=== PATIENT | female | born 1950 | race African-American/Black ===

== ENCOUNTER 2018-12-24 12:45 | Inpatient (IN) | payer MEDICARE, MEDICAID ==
[~2018-12-24] VITALS: Ht 165.1 cm; Wt 108.9 kg
[~2018-12-24 12:45] MED LIST: ENAL20TA PO; HYDR-3513 PO; OMEPRAZOLE PO; VERAPAMIL PO
[2018-12-24] MEDS ORDERED: ACETAMINOPHEN 325MG TABLET PO STA (13:36)
[2018-12-24] MEDS ORDERED: SODIUM CHLORIDE 0.9% 1000ML BAG (SEPSIS BOLUS) IV ONE (13:45)
[2018-12-24] MEDS ORDERED: LEVOFLOXACIN 500MG PREMIX 100 ML IV ONE (13:45)
[2018-12-24 13:59] LABS: HEMATOCRIT. 37.4 % (36.0-48.0); HEMOGLOBIN. 11.7 g/dL (12.0-16.0); MEAN PLATELET VOLUME 10.9 fl (7.4-10.4); PLATELET 169 x1000/uL (130-400); RED BLOOD CELL COUNT 5.35 mill/uL (4.2-5.4); RED CELL DISTRIBUTION WIDTH 15.5 % (11.6-14.6)
[2018-12-24 14:06] LABS: CHLORIDE 106 mEq/L (98-107)
[2018-12-24 14:07] LABS: INR 1.1; PROTHROMBIN TIME 10.9 sec (9.6-11.0)
[2018-12-24 14:12] LABS: PLATELET ESTIMATE NORMAL
[2018-12-24] MEDS ORDERED: KETOROLAC 15MG/ML VIAL IV NR (15:00)
[2018-12-24] MEDS ORDERED: ONDANSETRON HCL 4MG/2ML INJ IV PRN (16:45)
[2018-12-24] MEDS ORDERED: DOCUSATE SODIUM 100MG CAPSULE PO PRN (16:45)
[2018-12-24] MEDS ORDERED: NA PHOS,M-B/NA PHOS,DI-BA ENEMA 118ML PR PRN (16:45)
[2018-12-24] MEDS ORDERED: CLONIDINE 0.1MG TABLET PO PRN (16:45)
[2018-12-24] MEDS ORDERED: ENOXAPARIN 40MG/0.4ML SYR SUBCUT SCH (16:45)
[2018-12-24] MEDS ORDERED: DIPHENHYDRAMINE 50MG/ML VIAL IV PRN (16:45)
[2018-12-24] MEDS ORDERED: IPRATROPIUM BROMIDE (0.02%) 0.5MG/2.5ML NEB HHN PRN (16:45)
[2018-12-24] MEDS ORDERED: GUAIFENESIN 200MG/10ML SUGAR FREE UDC PO PRN (16:45)
[2018-12-24] MEDS ORDERED: MAGNESIUM/ALUMINUM HYDROXIDE/SIMETHICONE 30ML UDC PO PRN (16:45)
[2018-12-24] MEDS ORDERED: HYDROCODONE/ACETAMINOPHEN 10/325MG TABLET PO PRN (16:45)
[2018-12-24 16:53] VITALS: BP 125/83
[2018-12-24] MEDS ORDERED: POTASSIUM CHLORIDE 20MEQ TABLET SR PO NR (17:45)
[2018-12-24] MEDS: ENOXAPARIN 30MG/0.3ML SYR SUBCUT SCH (21:24)
[2018-12-24] MEDS: SODIUM CHLORIDE 0.9% INJ 3ML FLUSH IVF SCH (21:24)
[2018-12-24] MEDS: ACETAMINOPHEN 325MG TABLET PO PRN (21:29)
[2018-12-25] MEDS: LORAZEPAM 2MG/ML CPJ IV PRN (00:13)
[2018-12-25 01:03] VITALS: BP 123/83
[2018-12-25 01:37] LABS: CREATINE KINASE MB FRACTION < 1.0 ng/mL (0.5-3.6)
[2018-12-25 01:38] LABS: CREATINE KINASE 79 IU/L (26-192)
[2018-12-25] MEDS: SODIUM CHLORIDE 0.9% INJ 3ML FLUSH IVF SCH ×3 (05:09→21:00)
[2018-12-25 07:20] LABS: CHLORIDE 110 mEq/L (98-107)
[2018-12-25 07:31] LABS: CREATINE KINASE 71 IU/L (26-192)
[2018-12-25 07:32] LABS: T4 FREE 1.75 ng/dL (0.76-1.46)
[2018-12-25 07:35] LABS: BASOPHILS % 0.3 % (0.0-2.0); EOSINOPHILS % 0.1 % (0.0-5.0); HEMATOCRIT. 33.6 % (36.0-48.0); HEMOGLOBIN. 10.5 g/dL (12.0-16.0); LYMPHOCYTES % 8.8 % (20.0-50.0); MEAN CORPUSCULAR HEMOGLOBIN 21.9 pg (28.0-32.0); MEAN CORPUSCULAR VOLUME 70.1 fL (81.0-99.0); MEAN PLATELET VOLUME 11.8 fl (7.4-10.4); MONOCYTES % 10.2 % (2.0-8.0); NEUTROPHILS % 80.6 % (40.0-76.0); PLATELET 163 x1000/uL (130-400); RED CELL DISTRIBUTION WIDTH 15.8 % (11.6-14.6)
[2018-12-25 07:36] LABS: CREATINE KINASE MB FRACTION < 1.0 ng/mL (0.5-3.6)
[2018-12-25 08:00] VITALS: BP 148/94
[2018-12-25] MEDS: ENOXAPARIN 30MG/0.3ML SYR SUBCUT SCH ×2 (09:53→20:56)
[2018-12-25] MEDS: ASPIRIN 81MG EC TABLET PO SCH (09:53)
[2018-12-25 12:00] VITALS: BP 146/88
[2018-12-25] MEDS: POTASSIUM CHLORIDE 20MEQ TABLET SR PO SCH (12:39)
[2018-12-25] MEDS: AMIODARONE HCL 200 MG TABLET PO SCH ×2 (12:40→20:59)
[2018-12-25] MEDS: DILTIAZEM HCL 30MG TABLET PO SCH ×3 (12:41→23:42)
[2018-12-25] MEDS: BENZONATATE 100MG CAPSULE PO SCH ×2 (12:42→20:59)
[2018-12-25] MEDS ORDERED: LEVOFLOXACIN 500MG PREMIX 100 ML IV SCH (14:00)
[2018-12-25] MEDS: IPRATROPIUM BROMIDE (0.02%) 0.5MG/2.5ML NEB HHN SCH ×2 (15:28→20:50)
[2018-12-25 16:00] VITALS: BP 143/80
[2018-12-25 20:00] VITALS: BP 135/94
[2018-12-25] MEDS: MORPHINE SULFATE 2 MG/ML CPJ (NOT FOR IM USE) IV PRN (21:00)
[2018-12-25] MEDS: ACETAMINOPHEN 325MG TABLET PO PRN (21:50)
[2018-12-26] VITALS: BP 119/82
[2018-12-26] MEDS: IPRATROPIUM BROMIDE (0.02%) 0.5MG/2.5ML NEB HHN SCH ×4 (01:21→21:05)
[2018-12-26] MEDS: MORPHINE SULFATE 2 MG/ML CPJ (NOT FOR IM USE) IV PRN ×3 (01:54→12:32)
[2018-12-26 04:00] VITALS: BP 118/83
[2018-12-26] MEDS: DILTIAZEM HCL 30MG TABLET PO SCH ×4 (05:25→23:10)
[2018-12-26] MEDS: SODIUM CHLORIDE 0.9% INJ 3ML FLUSH IVF SCH ×3 (05:25→21:13)
[2018-12-26] MEDS: BENZONATATE 100MG CAPSULE PO SCH ×3 (05:25→21:12)
[2018-12-26 08:42] VITALS: BP 152/81
[2018-12-26] MEDS: POTASSIUM CHLORIDE 20MEQ TABLET SR PO SCH (08:49)
[2018-12-26] MEDS: ASPIRIN 81MG EC TABLET PO SCH (08:49)
[2018-12-26] MEDS: ENOXAPARIN 30MG/0.3ML SYR SUBCUT SCH ×2 (08:50→21:12)
[2018-12-26] MEDS: AMIODARONE HCL 200 MG TABLET PO SCH ×2 (09:02→21:12)
[2018-12-26 12:06] VITALS: BP 152/84
[2018-12-26 12:11] LABS: CLARITY URINE CLEAR (CLEAR); COLOR URINE DARK YELLOW (YELLOW); KETONES URINE TRACE (NEGATIVE); LEUKOCYTE ESTERASE URINE TRACE (NEGATIVE); NITRITE URINE NEGATIVE (NEGATIVE); OCCULT BLOOD URINE NEGATIVE (NEGATIVE); PROTEIN URINE 1+ (NEGATIVE); SPECIFIC GRAVITY URINE 1.028 (1.005-1.030)
[2018-12-26] MEDS ORDERED: IOHEXOL-350 100 ML BOTTLE ONE (14:37)
[2018-12-26 16:16] VITALS: BP 150/76
[2018-12-26] MEDS: LEVOFLOXACIN 500MG PREMIX 100 ML IV SCH (17:15)
[2018-12-26 20:00] VITALS: BP 161/87
[2018-12-26] MEDS: ACETAMINOPHEN 325MG TABLET PO PRN (21:12)
[2018-12-26] MEDS: LORAZEPAM 2MG/ML CPJ IV PRN (22:59)
[2018-12-27] VITALS: BP 138/57
[2018-12-27 04:00] VITALS: BP 142/77
[2018-12-27] MEDS: DILTIAZEM HCL 30MG TABLET PO SCH ×3 (05:49→17:46)
[2018-12-27] MEDS: SODIUM CHLORIDE 0.9% INJ 3ML FLUSH IVF SCH ×3 (05:49→22:00)
[2018-12-27] MEDS: BENZONATATE 100MG CAPSULE PO SCH ×3 (05:49→21:39)
[2018-12-27 07:18] LABS: BASOPHILS % 0.4 % (0.0-2.0); CHLORIDE 107 mEq/L (98-107); EOSINOPHILS % 2.3 % (0.0-5.0); HEMATOCRIT. 35.1 % (36.0-48.0); HEMOGLOBIN. 10.9 g/dL (12.0-16.0); LYMPHOCYTES % 21.8 % (20.0-50.0); MEAN CORPUSCULAR HEMOGLOBIN 21.8 pg (28.0-32.0); MEAN CORPUSCULAR VOLUME 69.8 fL (81.0-99.0); MEAN PLATELET VOLUME 11.7 fl (7.4-10.4); NEUTROPHILS % 61.5 % (40.0-76.0); PLATELET 193 x1000/uL (130-400); RED BLOOD CELL COUNT 5.02 mill/uL (4.2-5.4); RED CELL DISTRIBUTION WIDTH 15.6 % (11.6-14.6)
[2018-12-27 08:00] VITALS: BP 140/80
[2018-12-27] MEDS: POTASSIUM CHLORIDE 20MEQ TABLET SR PO SCH (08:33)
[2018-12-27] MEDS: ASPIRIN 81MG EC TABLET PO SCH (08:33)
[2018-12-27] MEDS: AMIODARONE HCL 200 MG TABLET PO SCH ×2 (08:33→21:40)
[2018-12-27] MEDS: ENOXAPARIN 30MG/0.3ML SYR SUBCUT SCH ×2 (08:34→21:40)
[2018-12-27] MEDS: IPRATROPIUM BROMIDE (0.02%) 0.5MG/2.5ML NEB HHN SCH ×3 (08:58→21:00)
[2018-12-27] MEDS: LEVOFLOXACIN 500MG PREMIX 100 ML IV SCH (17:46)
[2018-12-27 20:00] VITALS: BP 142/69
[2018-12-27] MEDS: MORPHINE SULFATE 2 MG/ML CPJ (NOT FOR IM USE) IV PRN (21:42)
[2018-12-28] VITALS: BP 158/84
[2018-12-28] MEDS: IPRATROPIUM BROMIDE (0.02%) 0.5MG/2.5ML NEB HHN SCH ×2 (00:56→10:11)
[2018-12-28] MEDS: DILTIAZEM HCL 30MG TABLET PO SCH ×2 (02:31→11:58)
[2018-12-28 04:00] VITALS: BP 138/66
[2018-12-28] MEDS: ACETAMINOPHEN 325MG TABLET PO PRN (05:02)
[2018-12-28] MEDS: SODIUM CHLORIDE 0.9% INJ 3ML FLUSH IVF SCH (05:56)
[2018-12-28] MEDS: BENZONATATE 100MG CAPSULE PO SCH (05:56)
[2018-12-28 07:05] LABS: CHLORIDE 106 mEq/L (98-107)
[2018-12-28 07:09] LABS: BASOPHILS % 0.7 % (0.0-2.0); EOSINOPHILS % 2.2 % (0.0-5.0); HEMATOCRIT. 34.3 % (36.0-48.0); LYMPHOCYTES % 22.6 % (20.0-50.0); MEAN CORPUSCULAR VOLUME 68.8 fL (81.0-99.0); MEAN PLATELET VOLUME 11.2 fl (7.4-10.4); MONOCYTES % 13.4 % (2.0-8.0); NEUTROPHILS % 61.1 % (40.0-76.0); PLATELET 200 x1000/uL (130-400); RED BLOOD CELL COUNT 4.99 mill/uL (4.2-5.4); RED CELL DISTRIBUTION WIDTH 15.4 % (11.6-14.6)
[2018-12-28 08:00] VITALS: BP 156/86
[2018-12-28] MEDS: AMIODARONE HCL 200 MG TABLET PO SCH (08:14)
[2018-12-28] MEDS: ASPIRIN 81MG EC TABLET PO SCH (08:14)
[2018-12-28] MEDS: POTASSIUM CHLORIDE 20MEQ TABLET SR PO SCH (08:14)
[2018-12-28] MEDS: ENOXAPARIN 30MG/0.3ML SYR SUBCUT SCH (08:15)
[2018-12-28 11:27] VITALS: BP 156/86
== END 2018-12-28 13:35 | disposition home or self-care (01) | DRG 871 ==
LOC: ER 12:45 → 8WST 15:40 → EDBEDREQTM 15:49 → EDBEDREQ 15:49 → ENRESERV 15:51
PROVIDERS: ADMIT Internal Medicine; ATTEND Internal Medicine
DX: A41.9 Sepsis, unspecified organism (principal); J18.9 Pneumonia, unspecified organism; J96.00 Acute respiratory failure, unspecified whether with hypoxia or hypercapnia; J44.0 Chronic obstructive pulmonary disease with (acute) lower respiratory infection; E46 Unspecified protein-calorie malnutrition; R04.2 Hemoptysis; E87.6 Hypokalemia; I48.91 Unspecified atrial fibrillation; D64.9 Anemia, unspecified; E66.01 Morbid (severe) obesity due to excess calories; I07.1 Rheumatic tricuspid insufficiency; I27.21 Secondary pulmonary arterial hypertension; R13.12 Dysphagia, oropharyngeal phase; Z86.73 Personal history of transient ischemic attack (TIA), and cerebral infarction without residual deficits; Z98.84 Bariatric surgery status; Z88.0 Allergy status to penicillin; Z79.1 Long term (current) use of non-steroidal anti-inflammatories (NSAID); Z79.899 Other long term (current) drug therapy; Z68.39 Body mass index [BMI] 39.0-39.9, adult; I10 Essential (primary) hypertension
CPT/HCPCS: 36415; 70490; 71045; 71275; 80048; 81003; 82550; 82553; 83605; 83880; 84145; 84439; 84443; 84484; 87070; 87804; 92610; 93005; 93306; 94640; 96365; 99291; J1650; J1885; J1956; J2060; J2270; J7030; J7040; Q9967

== ENCOUNTER 2019-01-04 05:47 | Inpatient (IN) | payer MEDICARE, MEDICAID ==
[~2019-01-04] VITALS: Ht 165.1 cm; Wt 111.1 kg
[2019-01-04] MEDS ORDERED: FAMOTIDINE 20MG/2ML VIAL IV STA (07:32)
[2019-01-04] MEDS ORDERED: ONDANSETRON HCL 4MG/2ML INJ IV STA (07:32)
[2019-01-04] MEDS ORDERED: SODIUM CHLORIDE 0.9% 1,000 ML IV ONE (07:32)
[2019-01-04] MEDS ORDERED: MAGNESIUM/ALUMINUM HYDROXIDE/SIMETHICONE 30ML UDC PO STA (07:32)
[2019-01-04] MEDS ORDERED: VISCOUS LIDOCAINE 2% 15 ML UDC PO STA (07:32)
[2019-01-04 08:25] LABS: BASOPHILS % 0.9 % (0.0-2.0); HEMATOCRIT. 34.6 % (36.0-48.0); HEMOGLOBIN. 10.7 g/dL (12.0-16.0); LYMPHOCYTES % 15.9 % (20.0-50.0); MEAN CORPUSCULAR HEMOGLOBIN 21.7 pg (28.0-32.0); MEAN CORPUSCULAR VOLUME 69.7 fL (81.0-99.0); MEAN PLATELET VOLUME 9.8 fl (7.4-10.4); NEUTROPHILS % 72.2 % (40.0-76.0); PLATELET 287 x1000/uL (130-400); RED BLOOD CELL COUNT 4.96 mill/uL (4.2-5.4); RED CELL DISTRIBUTION WIDTH 16.4 % (11.6-14.6)
[2019-01-04 08:30] LABS: CHLORIDE 112 mEq/L (98-107)
[2019-01-04] MEDS ORDERED: ONDANSETRON HCL 4MG/2ML INJ IV ONE (09:00)
[2019-01-04 09:03] LABS: PLATELET ESTIMATE NORMAL
[2019-01-04 10:34] LABS: CLARITY URINE CLEAR (CLEAR); COLOR URINE YELLOW (YELLOW); KETONES URINE NEGATIVE (NEGATIVE); LEUKOCYTE ESTERASE URINE NEGATIVE (NEGATIVE); NITRITE URINE NEGATIVE (NEGATIVE); OCCULT BLOOD URINE NEGATIVE (NEGATIVE); PH URINE 6.5 (4.5-8.0); PROTEIN URINE NEGATIVE (NEGATIVE); SPECIFIC GRAVITY URINE 1.013 (1.005-1.030)
[2019-01-04] MEDS ORDERED: IOHEXOL-300 100 ML BOTTLE ONE (10:57)
[2019-01-04] MEDS ORDERED: LORAZEPAM 2MG/ML CPJ IV ONE (12:30)
[2019-01-04] MEDS: METOCLOPRAMIDE HCL 10MG/2ML VIAL IV SCH ×2 (14:00→21:13)
[2019-01-04 15:19] VITALS: BP 167/77
[2019-01-04] MEDS ORDERED: DILTIAZEM HCL 60MG TABLET PO NR (15:30)
[2019-01-04] MEDS: PANTOPRAZOLE SODIUM 40 MG/VIAL IV SCH (15:48)
[2019-01-04 16:33] LABS: HEPATITIS B SURFACE ANTIGEN NEGATIVE
[2019-01-04 17:03] LABS: HEPATITIS A AB IGM NEGATIVE (NEGATIVE)
[2019-01-04] MEDS ORDERED: HYDROCODONE/ACETAMINOPHEN 5/325MG TABLET PO PRN (17:15)
[2019-01-04] MEDS ORDERED: DOCUSATE SODIUM 100MG CAPSULE PO PRN (17:15)
[2019-01-04] MEDS ORDERED: IPRATROPIUM/ALBUTEROL 0.5-3(2.5)MG/3ML NEB HHN PRN (17:15)
[2019-01-04] MEDS ORDERED: LORAZEPAM 0.5MG TABLET PO PRN (17:15)
[2019-01-04] MEDS ORDERED: ACETAMINOPHEN 325MG TABLET PO PRN (17:15)
[2019-01-04] MEDS ORDERED: CLONIDINE 0.1MG TABLET PO PRN (17:15)
[2019-01-04] MEDS: ONDANSETRON HCL 4MG/2ML INJ IV PRN (17:24)
[2019-01-04] MEDS ORDERED: POTASSIUM CHLORIDE 20MEQ TABLET SR PO NR (17:30)
[2019-01-04 20:00] VITALS: BP 148/72
[2019-01-04] MEDS: DILTIAZEM HCL 90MG TABLET PO SCH (21:13)
[2019-01-04 22:00] LABS: TOTAL IRON BINDING CAPACITY 244 ug/dL (250-450)
[2019-01-04 22:19] LABS: CARCINO EMBRYONIC ANTIGEN 1.7 ng/ml
[2019-01-04 23:43] LABS: *AMPHETAMINES SCREEN URINE NEGATIVE (NEGATIVE); *BARBITURATES SCREEN URINE NEGATIVE (NEGATIVE)
[2019-01-04 23:44] LABS: *BENZODIAZEPINES SCREEN URINE NEGATIVE (NEGATIVE); *COCAINE SCREEN URINE NEGATIVE (NEGATIVE); CANNABINOID URINE SCREEN NEGATIVE (NEGATIVE); METHADONE URINE SCREEN NEGATIVE (NEGATIVE); OPIATES URINE SCREEN PRESUMTIVE POSITIVE (NEGATIVE); PHENCYCLIDINE URINE SCREEN NEGATIVE (NEGATIVE)
[2019-01-05] VITALS: BP 126/74
[2019-01-05] MEDS: DILTIAZEM HCL 90MG TABLET PO SCH ×4 (03:00→20:05)
[2019-01-05 04:00] VITALS: BP 118/68
[2019-01-05] MEDS: METOCLOPRAMIDE HCL 10MG/2ML VIAL IV SCH ×3 (05:01→21:21)
[2019-01-05 08:00] VITALS: BP 126/60
[2019-01-05] MEDS: PANTOPRAZOLE SODIUM 40 MG/VIAL IV SCH (08:17)
[2019-01-05 12:00] VITALS: BP 145/75
[2019-01-05] MEDS: DIATR MEGLU/DIATRIZOATE SOLN 30ML PO SCH ×2 (13:07→13:56)
[2019-01-05 13:58] LABS: CHLORIDE 106 mEq/L (98-107)
[2019-01-05] MEDS ORDERED: IOHEXOL-300 100 ML BOTTLE ONE (15:18)
[2019-01-05 16:00] VITALS: BP_SYST 166; BP_DIAS 72; BP_DIAS 79
[2019-01-05 19:01] LABS: CREATINE KINASE 81 IU/L (26-192)
[2019-01-05 20:00] VITALS: BP 127/76
[2019-01-06] VITALS: BP 126/67
[2019-01-06] MEDS: DILTIAZEM HCL 90MG TABLET PO SCH ×4 (03:32→21:01)
[2019-01-06 04:00] VITALS: BP 119/64
[2019-01-06] MEDS: METOCLOPRAMIDE HCL 10MG/2ML VIAL IV SCH ×3 (05:44→21:01)
[2019-01-06 07:45] LABS: EOSINOPHILS % 1.7 % (0.0-5.0); HEMATOCRIT. 37.5 % (36.0-48.0); HEMOGLOBIN. 11.8 g/dL (12.0-16.0); MEAN CORPUSCULAR HEMOGLOBIN 21.8 pg (28.0-32.0); MEAN PLATELET VOLUME 10.4 fl (7.4-10.4); MONOCYTES % 12.5 % (2.0-8.0); NEUTROPHILS % 63.8 % (40.0-76.0); PLATELET 281 x1000/uL (130-400); RED BLOOD CELL COUNT 5.44 mill/uL (4.2-5.4); RED CELL DISTRIBUTION WIDTH 16.5 % (11.6-14.6)
[2019-01-06 08:07] LABS: CANCER ANTIGEN 125 57.3 U/mL (0.0-38.1)
[2019-01-06 08:09] LABS: CHLORIDE 107 mEq/L (98-107)
[2019-01-06] MEDS: PANTOPRAZOLE SODIUM 40 MG/VIAL IV SCH (09:14)
[2019-01-06] MEDS ORDERED: POTASSIUM CHLORIDE 20MEQ TABLET SR PO SCH (14:00)
[2019-01-06 20:00] VITALS: BP 121/68
[2019-01-07] VITALS: BP 112/52
[2019-01-07] MEDS: DILTIAZEM HCL 90MG TABLET PO SCH ×3 (02:42→14:17)
[2019-01-07 04:00] VITALS: BP 136/75
[2019-01-07] MEDS: METOCLOPRAMIDE HCL 10MG/2ML VIAL IV SCH ×2 (05:31→14:00)
[2019-01-07 07:40] LABS: BASOPHILS % 0.3 % (0.0-2.0); EOSINOPHILS % 1.6 % (0.0-5.0); HEMATOCRIT. 34.6 % (36.0-48.0); LYMPHOCYTES % 21.5 % (20.0-50.0); MEAN CORPUSCULAR VOLUME 69.3 fL (81.0-99.0); MEAN PLATELET VOLUME 10.7 fl (7.4-10.4); MONOCYTES % 12.7 % (2.0-8.0); NEUTROPHILS % 63.9 % (40.0-76.0); PLATELET 259 x1000/uL (130-400); RED BLOOD CELL COUNT 4.99 mill/uL (4.2-5.4); RED CELL DISTRIBUTION WIDTH 16.4 % (11.6-14.6)
[2019-01-07 07:52] LABS: CHLORIDE 108 mEq/L (98-107)
[2019-01-07] MEDS: PANTOPRAZOLE SODIUM 40 MG/VIAL IV SCH (09:16)
[2019-01-07] MEDS: ONDANSETRON HCL 4MG/2ML INJ IV PRN (10:57)
[2019-01-07] MEDS ORDERED: DOCUSATE SODIUM 250MG CAPSULE PO SCH (12:00)
[2019-01-07] MEDS ORDERED: PANT40VI PO (12:42)
== END 2019-01-07 15:15 | disposition home or self-care (01) | DRG 389 ==
LOC: ER 05:47 → 6EST 12:23 → EDBEDREQ 12:30 → ENRESERV 12:42
PROVIDERS: ADMIT Internal Medicine; ATTEND Internal Medicine
DX: K56.1 Intussusception (principal); I47.1 Supraventricular tachycardia; J90 Pleural effusion, not elsewhere classified; J98.11 Atelectasis; Z68.41 Body mass index [BMI] 40.0-44.9, adult; K57.30 Diverticulosis of large intestine without perforation or abscess without bleeding; E66.01 Morbid (severe) obesity due to excess calories; D50.9 Iron deficiency anemia, unspecified; D72.821 Monocytosis (symptomatic); E87.6 Hypokalemia; I16.0 Hypertensive urgency; K42.9 Umbilical hernia without obstruction or gangrene; E11.9 Type 2 diabetes mellitus without complications; I48.91 Unspecified atrial fibrillation; I10 Essential (primary) hypertension; R74.0 Nonspecific elevation of levels of transaminase and lactic acid dehydrogenase [LDH]; I45.10 Unspecified right bundle-branch block; Z88.0 Allergy status to penicillin; Z87.01 Personal history of pneumonia (recurrent); Z98.84 Bariatric surgery status; Z90.49 Acquired absence of other specified parts of digestive tract; Z79.899 Other long term (current) drug therapy
CPT/HCPCS: 36415; 71045; 74177; 76700; 76830; 76856; 80048; 80076; 80305; 81003; 82105; 82378; 82550; 82728; 83540; 83550; 84484; 86140; 86301; 86304; 86705; 86709; 86803; 87340; 93005; 96374; 99285; C9113; J2060; J2405; J2765; J3490; J7030; Q9963; Q9967